=== PATIENT | female | born 1965 | race Caucasian/White ===

== ENCOUNTER 2024-04-07 13:03 | Emergency (ER) | payer OTHER ==
[2024-04-07 13:15] VITALS: TEMP 98.5
[2024-04-07] MEDS: ALPRAZolam 0.25 MG TAB PO STA (14:04)
--- NOTE | 2024-04-07 16:18 | ED ---
General Adult HPI - General Chief complaint: Psychiatric Symptoms Stated complaint: Anxiety Time Seen by Provider: 04/07/24 13:32 Source: patient Mode of arrival: ambulatory Limitations: no limitations - History of Present Illness Initial comments: Patient is 58-year-old woman with a past medical history of anxiety and depression, hypertension, presenting today for panic attack. Patient states that she used to be on medications for anxiety and depression however started gaining weight and discontinued herself from these. Today she was at home when s he had to tell the woman living with them that they were evicting her from their home. This person has been throwing food on the floor of their home, has been keeping her pitbull in their home when the patient and her do not feel safe at the animal and at home and refusing to leave. The woman started screaming at the patient and refusing to leave. Discussed with patient if he like her heart started racing and feeling like she could not breathe, similar to prior panic attack she has had in the past. Patient states that she has not been eating or sleeping well due to stress and feeling depressed. She does not currently take any medications for depression or anxiety. The patient denies suicidal thoughts or homicidal thoughts. She currently denies any chest pain, difficulty in breathing, abdominal pain, nausea, vomiting or additional complaints. - Related Data Previous Rx's Medication Instructions Recorded ALPRAZolam [Xanax] 0.25 mg PO Q8HR PRN 3 Days #9 tab 04/07/24 Allergies Allergy/AdvReac Type Severity Reaction Status Date / Time No Known Allergies Allergy Verified 04/07/24 13:17 Review of Systems ROS Statement: Those systems with pertinent positive or pertinent negative responses have been documented in the HPI. ROS Other: All systems not noted in ROS Statement are negative. Past Medical History Past Medical History: Hypertension History of Any Multi-Drug Resistant Organisms: None Reported Past Surgical History: Orthopedic Surgery, Tubal Ligation Past Psychological History: Depression Smoking Status: Current every day smoker Past Alcohol Use History: None Reported Past Drug Use History: None Reported General Exam - General Exam Comments Initial Comments: PE: CONSTITUTIONAL: No apparent distress, well appearing SKIN: Warm, dry, no jaundice, hives or petechiae EYES: Pupils are equally round, extraocular movements intact without nystagmus, clear conjunctiva, non-icteric sclera HENT: Normocephalic, atraumatic, moist mucus membranes, oropharynx clear without exudates NECK: , Full range of motion, normal appearance PULMONARY: Clear to auscultation without wheezes, rhonchi, or rales, normal excursion, no accessory muscle use and no stridor CARDIOVASCULAR: Regular rate, rhythm, normal S1 and S2. No appreciated murmurs, rubs or gallops. Strong radial pulses with intact distal perfusion. No lower extremity edema GASTROINTESTINAL: Soft, active bowel sounds throughout, non-tender, non- distended, no palpable masses, no rebound or guarding. No hepatosplenomegaly MUSCULOSKELETAL: Extremities have no gross deformity, no edema, redness, or sw elling. No calf swelling NEUROLOGIC:_a/o x 3, GCS 15, normal mentation and speech. Moves all extremities x 4 without motor or sensory deficit PSYCHIATRIC: Tearful and anxious mood and affect, thought process is clear and linear Limitations: no limitations Course Vital Signs 04/07/24 04/07/24 13:11 16:40 Temperature 98.5 F Pulse Rate 110 H 74 Respiratory 20 18 Rate Blood Pressure 145/84 132/74 O2 Sat by Pulse 97 99 Oximetry Medical Decision Making - Medical Decision Making Was pt. sent in by a medical professional or institution (, PA, [employer], urgent care, hospital, or fci...) When possible be specific @ -No Did you speak to anyone other than the patient for history (EMS, parent, family, police, friend...)? What history was obtained from this source @ -No Did you review nursing and triage notes (agree or disagree)? Why? @ -I reviewed nursing and triage notes, they are slightly different from the history presented by the patient, patient feels anxious and depressed regarding the living situation with her current tenant Were old charts reviewed (outside hosp., previous admission, EMS record, old EKG, old radiological studies, urgent care reports/EKG's, fci records)? Report findings @No old charts available for review Differential Diagnosis (chest pain, altered mental status, abdominal pain women, abdominal pain men, vaginal bleeding, weakness, fever, dyspnea, syncope, headache, dizziness, GI bleed, back pain, seizure, CVA, palpatations, mental health, musculoskeletal)? @Differential diagnosis remains broad however top considerations include depression, anxiety, panic attack, adjustment disorder, situational depression.... This is not meant to be all-inclusive list X-rays interpreted by me (1pt min.). @ -None done CT interpreted by me (1pt min.). @ -None done U/S interpreted by me (1pt. min.). @ -None done What testing was considered but not performed or refused? (CT, X-rays, U/S, labs)? Why? @ -None What meds were considered but not given or refused? Why? @ -None Did you discuss the management of the patient with other professionals (professionals i.e. DrRaiza, PA, [employer], lab, RT, psych nurse, social services aide, blast hole driller, teacher, juvenile probation officer, pillowcase folder)? Give summary @I did discuss patient's case with EPS RN so that patient could be given resources to help her further address her current symptoms Was smoking cessation discussed for >3mins.? @ -No Was critical care preformed (if so, how long)? @ -No Were there social determinants of health that impacted care today? How? (Homelessness, low income, unemployed, alcoholism, drug addiction, transportation, low edu. Level, literacy, decrease access to med. care, shelter, rehab)? @ -No Was there de-escalation of care discussed even if they declined (Discuss DNR or withdrawal of care, Hospice)? @ -No What co-morbidities impacted this encounter? (DM, HTN, Smoking, COPD, CAD, Cancer, CVA, ARF, Chemo, Hep., AIDS, mental health diagnosis, sleep apnea, morbid obesity)? @Hypertension Was patient admitted / discharged? Hospital course, mention meds given and route, prescriptions, significant lab abnormalities, going to OR and other pertinent info. @Discharged-the patient is a pleasant 58-year-old female with a past medical history of hypertension presenting today for a panic attack that started after being screamed out by a woman that has been living with she and her when this 1 was told that she was going to be evicted from the home. Patient has had prior panic attacks and at one point was on medications for depression and anxiety however has not been on these for some time. Of note patient was recently admitted to the hospital for hypertension, but currently denies any VARGAS, chest pain and has no LE swelling. I did consider obtaining basic labs, EKG, chest XR however patient states that she has had panic attacks in the past and today symptoms are similar to prior, had an obvious trigger, patient has been dealing with feelings of depression and anxiety regarding her current living situation and she currently denies any chest pain or shortness of breath. Physical exam congruent with history provided, patient tearful, anxious and somewhat withdrawn, normal cardiopulmonary exam, no lower extremity swelling, though depressed she denies any thoughts of suicide or homicide or plan of suicide or homicide and does not have access to weapons at home. I asked the patient if she would want to be voluntarily admitted to the psychiatric unit to help address her symptoms of anxiety and depression and began her on a medication regimen to address the symptoms however patient states that she needs to work tomorrow. She is agreeable with meeting with EPS so that she can be given further resources to follow-up with appointment discharge. While awaiting assessment I offered the patient Xanax to which she was agreeable. Patient seen and evaluated by EPS, provided with resources for outpatient follow-up regarding her symptoms today. I did offer the patient a short small course of Xanax that she could take when she begins having feelings of panic. I discussed with her that this medication should only be taken as absolutely necessary and not on a regular basis. I also discussed with her that this is a temporizing measure and she should be for sure to follow-up with her primary care doctor and to be resources provided to her for long-term management of her symptoms. Patient was comfortable and agreeable plan of care. In my medical judgment there is currently no evidence of an immediate life- threatening or surgical condition. Discharge is therefore indicated at this time. Discharge treatment instructions, follow up instructions, and appropriate emergency department return precautions were discussed with the patient and/or medical decision maker. Patient and/or medical decision maker expressed unders tanding of and agreed with the treatment plan, follow up instructions, and emergency department return precaution. All patient's and/or medical decision maker's questions were answered. Undiagnosed new problem with uncertain prognosis? @ -No Drug Therapy requiring intensive monitoring for toxicity (Heparin, Nitro, Insulin, Cardizem)? @ -No Were any procedures done? @ -No Diagnosis/symptom? @ -Panic attack, acute anxiety Acute, or Chronic, or Acute on Chronic? @ -Acute Uncomplicated (without systemic symptoms) or Complicated (systemic symptoms)? @ -Complicated Side effects of treatment? @ -No Exacerbation, Progression, or Severe Exacerbation? @ -No Poses a threat to life or bodily function? How? (Chest pain, [place], [place], pneumonia, PE, COPD, DKA, ARF, appy, cholecystitis, CVA, Diverticulitis, Homicidal, Suicidal, threat to staff... and all critical care pts) @ -No Disposition Clinical Impression: Acute anxiety Disposition: HOME SELF-CARE Condition: Good Instructions (If sedation given, give patient instructions): Generalized Anxiety Disorder (ED) Additional Instructions: Every disease is a spectrum and a small chance still exists that a serious condition could develop, for this reason, please monitor yourself closely for new, changing or worsening symptoms, feelings of wanting to kill yourself/harm yourself or kill or harm others, seeing or hearing things that are not there, chest pain, difficulty in breathing, inability to tolerate/keep down fluids or your medications, inability to follow up with outpatient providers as instructed and should you experience these symptoms or should you have any further concerns for your wellbeing please return to the ED or call 911 immediately. Please take your prescribed medication, Xanax only as absolutely needed for panic attacks. Please help with your primary care provider for discussion regarding referral to a therapist and medications to treat your symptoms long- term PLEASE call your primary care physician as soon as possible to arrange / discuss plan for followup appointment. Appointment in the next 1-3 days is strongly encouraged if possible. PLEASE let us know here before you leave if there is anything further we can do to be of any assistance. Take care and feel Better! Prescriptions: ALPRAZolam [Xanax] 0.25 mg PO Q8HR PRN 3 Days #9 tab PRN Reason: Anxiety Is patient prescribed a controlled substance at d/c from ED?: Yes When asked, does pt state using other controlled substances?: No If prescribed controlled substance>3 days was MAPS reviewed?: Yes Referrals: CAROLYN WATKINS MD [Primary Care Provider] - 1-2 days
[2024-04-07 16:41] VITALS: BP 132/74; PULSE 74; RESP 18
== END 2024-04-07 16:41 | disposition home or self-care (01) ==
LOC: EC 13:03
CPT/HCPCS: 82075; 99285